=== PATIENT | female | born 1940 | race Caucasian/White ===

== ENCOUNTER 2016-06-19 22:00 | Inpatient (IN) | payer MEDICARE, MEDICAID ==
--- NOTE | 2016-06-19 22:18 | ED Physician Chart ---
Chief Complaint/HPI - Patient Information Date Seen:: 06/19/16 Time Seen:: 22:10 Chief Complaint:: possible UTI History of Present Illness:: sent here for possible UTI/urosepsis. Started on Cipro 250 mg BID 06/13/16. No apparent documented fever. Patient states she feels normal now. Historian:: Patient, EMS Review:: Transfer documents Reviewed Review of Systems - Review of Systems General/Constitutional: No fever, No chills Skin: No skin lesions Head: No headache Eyes: No loss of vision ENT: No earache Neck: No neck pain Cardio Vascular: No chest pain Pulmonary: No SOB GI: No nausea, No vomiting G/U: No dysuria Musculoskeletal: No bone or joint pain, No back pain Endocrine: No polyuria Psychiatric: Prior psych history Hematopoietic: No bruising Allergic/Immuno: No urticaria Neurological: No syncope Past Medical History - Past Medical History Past Medical History: HTN, DM, CHF, Dyslipidemia, PUD/GERD, Dementia, Other ( aplastic anemia; hyperlipidemia; insomnia; dialysis M-W-F) Family History: Other (unavailable) Social History: Care Facility Surgical History: other (dialysis shunt) Psychiatricy History: Dementia Medication: Reviewed Family Medical History - Family Member Mother History Unknown: Yes Labs/Radiology/EKG Results - Lab Results Results: Laboratory Results - last 24 hr 06/19/16 06/19/16 06/19/16 22:24 22:24 22:24 WBC 9.4 RBC 3.09 L Hgb 10.5 L Hct 31.0 L MCV 100.0 MCH 33.8 H MCHC Differential 33.8 RDW 13.2 Plt Count 287 MPV 8.3 Neutrophils % 68.9 Lymphocytes % 22.9 Monocytes % 4.5 Eosinophils % 3.0 Basophils % 0.7 Sodium 140 Potassium 3.4 L Chloride 102 Carbon Dioxide 31.1 H Anion Gap 10.3 BUN 43 H Creatinine 3.9 H Est GFR ( Amer) TNP Est GFR (Non-Af Amer) TNP BUN/Creatinine Ratio 11.0 Glucose 233 H Hemoglobin A1c % 5.7 Calcium 9.0 Urine Source Urine Color Urine Clarity Urine pH Ur Specific [place] Urine Protein Urine Glucose (UA) Urine Ketones Urine Blood Urine Nitrate Urine Bilirubin Urine Urobilinogen Ur Leukocyte Esterase Urine RBC Urine WBC Ur Epithelial Cells Urine Bacteria 06/19/16 23:59 WBC RBC Hgb Hct MCV MCH MCHC Differential RDW Plt Count MPV Neutrophils % Lymphocytes % Monocytes % Eosinophils % Basophils % Sodium Potassium Chloride Carbon Dioxide Anion Gap BUN Creatinine Est GFR ( Amer) Est GFR (Non-Af Amer) BUN/Creatinine Ratio Glucose Hemoglobin A1c % Calcium Urine Source [address] [place] Urine Color YELLOW Urine Clarity CLEAR Urine pH 7.5 Ur Specific [place] 1.015 Urine Protein 30 H Urine Glucose (UA) NEGATIVE Urine Ketones TRACE Urine Blood MODERATE H Urine Nitrate NEGATIVE Urine Bilirubin SMALL H Urine Urobilinogen 1.0 Ur Leukocyte Esterase TRACE H Urine RBC 10-25 H Urine WBC 0-2 Ur Epithelial Cells FEW Urine Bacteria NONE SEEN Assessment - Assessment General Assessment: no evidence of a UTI ED Septic Shock - . Is Septic Shock (SBP<90, OR Lactate>4 mmol\L) present?: No Reassessment (Disposition) - Reassessment Reassessment Condition:: Unchanged - Diagnosis Diagnosis:: altered mental status; renal failure on dialysis - Patient Disposition Admitted to:: Med/Surg Spoke to:: Sam Logan Admitting Medical Physician:: Sam Logan Condition at Disposition:: Stable, Unchanged
[2016-06-19 22:33] LABS: % BASOPHILS 0.7 % (0.0-2.0); % LYMPHOCYTES 22.9 % (20.0-50.0); % MONOCYTES 4.5 % (2.0-10.0); % NEUTROPHILS 68.9 % (40.0-80.0); HEMOGLOBIN 10.5 gm/dL (11.7-16.1); MEAN CORPUSCULAR HEMOGLOBIN 33.8 pg (27.0-31.0); MEAN CORPUSCULAR HGB CONC 33.8 pg (28.0-36.0); MEAN PLATELET VOLUME 8.3 fl; NEUTROPHILE ABSOLUTE 6.4 Th/cmm (1.8-8.0); PLATELET COUNT 287 Th/cmm (150-400); RED BLOOD COUNT 3.09 Mil/cmm (3.80-5.20); RED CELL DISTRIBUTION WIDTH 13.2 % (11.5-20.0); WHITE BLOOD COUNT 9.4 Th/cmm (4.8-10.8)
[2016-06-19 22:45] LABS: ANION GAP 10.3 (7.0-16.0); BUN - UREA NITROGEN 43 mg/dL (7-25); CARBON DIOXIDE 31.1 mEq/L (21.0-31.0); CHLORIDE 102 mEq/L (98-107); GLUCOSE 233 mg/dL (70-105); POTASSIUM SERUM 3.4 mEq/L (3.5-5.1); SODIUM SERUM 140 mEq/L (136-145)
[2016-06-19 22:50] LABS: CREATININE - SERUM 3.9 mg/dL (0.6-1.2)
[2016-06-20 00:53] LABS: URINE BILIRUBIN SMALL (NEGATIVE); URINE COLOR YELLOW; URINE GLUCOSE (UA) NEGATIVE (NEGATIVE); URINE KETONE TRACE mg/dL (NEGATIVE)
[2016-06-20 00:54] LABS: URINE BLOOD MODERATE (NEGATIVE); URINE PH 7.5; URINE PROTEIN 30 mg/dL (NEGATIVE)
[2016-06-20 00:55] LABS: URINE BACTERIA NONE SEEN /hpf (NONE SEEN); URINE EPITHELIAL CELLS FEW /lpf (FEW); URINE WBC 0-2 /hpf (0-5)
[2016-06-20] MEDS ORDERED: cefTRIAXone 1 GM in Sodium Chloride 0.9% 50 ML IV ONE (01:14)
[2016-06-20] MEDS ORDERED: D5-0.45NS 1,000 ML IV SCH (05:00)
[2016-06-20] MEDS ORDERED: Fleet Enema 135 mL RC PRN (05:31)
[2016-06-20] MEDS ORDERED: Magnesium Hydroxide (MOM) 30 mL UDC PO PRN (05:31)
[2016-06-20 06:51] LABS: % BASOPHILS 0.8 % (0.0-2.0); % MONOCYTES 7.2 % (2.0-10.0); HEMATOCRIT 30.9 % (35.0-45.0); HEMOGLOBIN 10.5 gm/dL (11.7-16.1); MEAN CELL VOLUME 98.3 fl (81-100); MEAN CORPUSCULAR HEMOGLOBIN 33.5 pg (27.0-31.0); MEAN CORPUSCULAR HGB CONC 34.1 pg (28.0-36.0); MEAN PLATELET VOLUME 9.1 fl; PLATELET COUNT 269 Th/cmm (150-400); RED BLOOD COUNT 3.14 Mil/cmm (3.80-5.20); RED CELL DISTRIBUTION WIDTH 13.2 % (11.5-20.0); WHITE BLOOD COUNT 9.9 Th/cmm (4.8-10.8)
[2016-06-20 07:23] LABS: ALB/GLOB RATIO 0.9 (1.0-1.8); ALKALINE PHOSPHATASE 145 U/L (34-104); ANION GAP 9.5 (7.0-16.0); BILIRUBIN,TOTAL 0.5 mg/dL (0.3-1.0); BUN - UREA NITROGEN 43 mg/dL (7-25); BUN/CREATININE RATIO 11.3; CALCIUM SERUM 9.1 mg/dL (8.6-10.3); CARBON DIOXIDE 31.8 mEq/L (21.0-31.0); CHLORIDE 104 mEq/L (98-107); CREATININE - SERUM 3.8 mg/dL (0.6-1.2); GLUCOSE 110 mg/dL (70-105); POTASSIUM SERUM 3.3 mEq/L (3.5-5.1); SGOT 30 U/L (13-39); SGPT/ALT 27 U/L (7-52); SODIUM SERUM 142 mEq/L (136-145)
--- NOTE | 2016-06-20 08:55 | History & Physical ---
CHIEF COMPLAINT: Change in mental status, possible UTI. HISTORY OF PRESENT ILLNESS: This is a 75-year-old female transferred to [facility] ER for a change in mental status, possible urosepsis versus UTI, dehydration was noted to have change in her behavior at the shelter facility and was thus transferred to the hospital for further evaluation and treatment. PAST MEDICAL HISTORY: Includes CVA with left hemiparesis, CHF, diabetes mellitus type 2, muscle weakness, anemia, hypertension, dementia, hyperlipidemia, gastroesophageal reflux disease, end-stage renal disease, on hemodialysis. LABORATORY DATA: Her initial labs reveal white count of 9.4, hemoglobin 10.5, hematocrit 31.0, platelets 287. Chem-7: Sodium was 140, potassium 3.4, chloride 102, bicarbonate 31, BUN 43, creatinine 3.9, glucose 233. REVIEW OF SYSTEMS: Essentially normal except the above listed complaints in HPI. PHYSICAL EXAMINATION: VITAL SIGNS: Temperature 98.1, pulse 75, respirations 18, blood pressure 142/71. GENERAL: This is a well-developed, well-nourished 75-year-old female in no acute distress. HEENT: Normocephalic, atraumatic. Pupils equal, round, reactive to light and accommodation. Extraocular muscles intact. Ears: TMs intact. NECK: Supple, good range of motion, no thyromegaly, no lymphadenopathy. HEART: Regular rate and rhythm. No murmurs, rubs or clicks. LUNGS: Clear to auscultation. No rales, rhonchi or wheezing. ABDOMEN: ____, soft. Bowel sounds are active in all 4 quadrants. No rebound tenderness, rigidity or guarding. EXTREMITIES: No clubbing, cyanosis or edema. Pedal pulses intact. ASSESSMENT: 1. Generalized weakness. 2. Possible urinary tract infection versus urosepsis. 3. Hypokalemia. 4. End-stage renal disease, on hemodialysis. 5. Cerebrovascular accident with left hemiparesis. 6. Congestive heart failure. 7. Diabetes mellitus, type 2. 8. Anemia. 9. Hypertension. 10. Dementia. 11. Hyperlipidemia 12. Gastroesophageal reflux disease. PLAN: We will order blood cultures, urine cultures. The patient was started on Rocephin 1 gram IV every day. We will order a Nephrology consult with Dr. Sandoval. We will continue current home medications. [facility]# [id number]
--- NOTE | 2016-06-20 09:05 | Diagnostic Imaging Report ---
CHEST X-RAY: AP view INDICATION: Pneumonia COMPARISON: None FINDINGS: Chronic changes are seen with no focal consolidation or effusions. Heart size is normal. Atherosclerosis is noted. Degenerative changes of the spine are noted. Postsurgical changes of the left axillary region are noted. IMPRESSION: Chronic lung changes with no focal consolidation identified. Atherosclerotic vascular disease.
[2016-06-20 09:43] LABS: CHOLESTEROL 172 mg/dL (<200); TRIGLYCERIDES 103 mg/dL (<150)
[2016-06-20] MEDS ORDERED: VTE Chemical Prophylaxis Screen/Admission MC PRN (13:25)
--- NOTE | 2016-06-20 14:00 | Admit Criteria Form ---
Admit Criteria Forms - Admit Criteria Diagnosis: MENTAL STATUS CHANGE Clinical Indications for Inpatient Care (Place 'X' for any and all applicable criteria): Ongoing inpatient care may be needed for ANY ONE of the following(1)(2)(3)(5)(6) : [X]I. Suspected serious etiology (eg, medical disorder, POST ACUTE CARE REGISTERED NURSE event) of mental status change [ ]II. Danger to self or others not manageable at lower level of care [ ]III. Grave disability (eg, inability to perform self care necessary at lower level of care) [ ]IV. Agitation or inappropriate behavior interfering with care for primary condition (eg, attempting to discontinue lines or drains prematurely, unable to cooperate with respiratory care) [ ]V. Delirium [A] [D][E] as described by ANY ONE of the following(26): [ ]a) Delirium due to alcohol or sedative [F] withdrawal [ ]b) Delirium of uncertain etiology that has not responded to appropriate empiric treatment [ ]c) Delirium that prevents performance of a life-sustaining function (eg, feeding or hydrating oneself) [ ]. General contraindications and/or Inappropriate clinical situations for Observational Care in patients with Mental Status Change, when ANY ONE of the following is required: [ ]a) Prediction of prolongation of LOS based on ANY ONE of the following may be considered as a contraindication for observational care 2, 3, 4, 5, 6, 7, 8, 9, 10, 11 [ ]i) Age > 65 yrs. [ ]ii) Patient arriving by ambulance [ ]iii) Patient with high acuity [ ]iv) Patient requiring vital sign monitoring [ ]v) Patient on IV medication [ ]b) Systolic blood pressures 180mmHg 3,12 [ ]c) Patient with altered mental status including delirium and other alteration of consciousness, (3) [ ]d) Patient whose discharge disposition will be to a [facility] home or rehabilitation home should not be managed in Emergency Department Observation Unit. CMS rule requires 3 days hospital stay before such placement.3,13 [ ]e) Patient with failure to thrive due to broad array of etiologies 3,16,17 [ ]f) Inability to ambulate 3,14 Extended stay beyond goal length of stay for the primary condition may be needed until ALL of the following are present(3)(5): [ ]a) Underlying medical etiology of mental status change is absent, or has been established and adequately treated [ ]b) Danger to self or others is absent or manageable at lower level of care. [ ]c) Behavior crisis management, including physical or chemical restraints, is not required or available at lower level of car [ ]d) Substance or alcohol withdrawal is absent or manageable at lower level of care. [ ]e) Behavioral symptoms (eg, agitation, somnolence, inappropriate behavior) are absent, or are manageable at lower level of care. The original [facility] content created by [facility] has been revised. The portions of the content which have been revised are identified through the use of italic text or in bold, and [facility] has neither reviewed nor approved the modified material. All other unmodified content is copyright [facility]. Please see references footnoted in the original [facility] edition 2016 Admit Criteria Met?: Yes
[2016-06-20] MEDS ORDERED: Potassium Chloride 20 mEq ER Tab PO ONE (14:13)
--- NOTE | 2016-06-20 16:16 | Consultation ---
ATTENDING PHYSICIAN: Sam Logan M.D. WHITE SOURER: James Sandoval M.D. REASON FOR CONSULTATION: Electrolyte imbalance and fluid management. HISTORY OF PRESENT ILLNESS: This is a 75-year-old female with past medical history of end-stage renal disease on hemodialysis, who was brought in because of altered level of consciousness. Seven days prior to admission, the patient was diagnosed to have urinary tract infection. She was initiated on Cipro. A few hours prior to admission, she was noted by staff to have altered level of consciousness. She was being treated for ongoing urinary tract infection. She was then brought to the Emergency Room. She was afebrile with a white count of 9. Urinalysis revealed microhematuria. The patient still urinates with no dysuria nor gross hematuria. Denied any nausea and vomiting, abdominal pain, headaches, dizziness, fever nor chills. The patient currently on hemodialysis on Thursday, Thursday and Thursday. She does not recall her place of dialysis as well as her director pharmacology. PAST MEDICAL HISTORY: 1. End-stage renal disease, on hemodialysis. 2. Cerebrovascular accident with left hemiparesis. 3. Type 2 diabetes mellitus. 4. Gastroesophageal reflux disease. 5. Vascular dementia. 6. History of congestive heart failure. 7. Essential hypertension with chronic kidney disease. PAST SURGICAL HISTORY: Status post left AV fistula. CURRENT MEDICATIONS: She is currently on acetaminophen, bisacodyl, ferrous sulfate, magnesium hydroxide, Namenda, Protonix, vitamin B complex with vitamin C, alprazolam, ceftriaxone. ALLERGIES: No known drug allergies. SOCIAL AND FAMILY HISTORY: I was not able to obtain directly from the patient. However, she is able to answer my other enquires. REVIEW OF SYSTEMS: CONSTITUTIONAL: The patient's appetite had been fair. She had no fever, no chills. HEENT: No mention of headaches, no dizziness. CARDIORESPIRATORY: She does have history of hypertension, but no chest pain, palpitations, diaphoresis, cough, no shortness of breath. GASTROINTESTINAL: No nausea and vomiting, abdominal pain or cramping, hematemesis, melena, hematochezia, no diarrhea. ENDOCRINE: History of diabetes. No thyroid abnormalities. Also, no dyslipidemia. MUSCULOSKELETAL: Multiple joint arthralgias. GENITOURINARY: History of kidney failure, now on hemodialysis. HEMATOLOGIC: She has moderate anemia of chronic disease. NEUROPSYCHIATRIC: She has no syncopal episode nor seizure activity. She has some form of neuropathy. She also came in for possible ALOC with vascular dementia and some behavior disturbance. ENDOCRINE: As mentioned, she has a history of diabetes, no thyroid abnormalities nor dyslipidemia. PHYSICAL EXAMINATION: GENERAL: The patient is now awake, verbal, more coherent, able to respond to my enquires, not in any form of distress. VITAL SIGNS: Blood pressure 177/76, pulse 76, temperature 97 degrees. SKIN: Good turgor, warm, no rash, no jaundice appreciated. HEENT: Head normocephalic, atraumatic. Eyes: Extraocular muscles intact. Pupils equal, round, reactive to light and accommodates. Anicteric sclerae. Pale conjunctivae. Nose midline nasal septum. Mouth, moist mucosa with poor dentition. NECK: Supple, no adenopathy, no thyromegaly, no bruits. Trachea palpated in the midline. CHEST AND CARDIOVASCULAR: S1, S2. No rub, murmur, no gallop appreciated. Point of maximal impulse in fifth intercostal space, left midclavicular line. No abdominal or femoral bruits appreciated. LUNGS: Equal expansion. No use of accessory muscles. No supraclavicular retractions. Decreased breath sounds, but clear to auscultation without any wheeze. BREASTS: Symmetrical, without any discharge. ABDOMEN: Flat, soft. Positive for bowel sounds. No bruits either diastolic or systolic. RECTAL: Lax sphincter tone. GENITOURINARY: Normal appearing female genitalia. MUSCULOSKELETAL: No effusions present in her joints with limited range of motion. EXTREMITIES: No evidence of edema, cyanosis, no clubbing with palpable femoral, popliteal and dorsalis pedis pulses. NEUROLOGIC: The patient is awake, verbal; however, still has some difficult time, following my neuro commands, so I was not able to pursue further my neuro exam. LABORATORY DATA: Reveal a sodium of 142, potassium 3.3, chloride 104, bicarbonate 21, BUN 43, creatinine 3.8, glucose 110, calcium 9.1, hemoglobin A1c of 5.7%. White count 9.9, hemoglobin 10.5, hematocrit 30.9, polys 61%, platelets ____. Hemoglobin A1c of 5.7% albumin is 3.3. TSH 4.49, calcium 9.1. Chest x-ray, chronic changes of the lung with no focal consolidation. IMPRESSION: 1. End-stage renal disease, on hemodialysis. 2. Altered level of consciousness, possibly metabolic encephalopathy due to sepsis from her ongoing urinary tract infection versus transient ischemic attack. 3. Vascular dementia with some behavior disturbance. 4. Microscopic hematuria with possible urinary tract infection. 5. Cerebrovascular accident with left hemiparesis. 6. Type 2 diabetes mellitus with chronic kidney disease. 7. Gastroesophageal reflux disease. 8. History of congestive heart failure. 9. Partially blind. 10. Hypokalemia 11. Anemia of chronic disease. 12. Essential hypertension with chronic kidney disease. PLAN: 1. Hemodialysis today. 2. Replace potassium. 3. The patient more incoherent today, consider CT scan if mental status deteriorates. 4. Follow up cultures and continue antibiotics. Thank you, Dr. Logan, for this consult and we will follow the patient closely with you. JOB# [id number]
[2016-06-20] MEDS: D5-0.45NS w/10 mEq KCL 1,000 ML IV SCH (21:45)
[2016-06-20] MEDS: cefTRIAXone 1 GM in Sodium Chloride 0.9% 50 ML IV SCH (23:36)
[2016-06-21] MEDS ORDERED: Albumin 25% 25gm/100mL 25 GM/100 ML BTL IV PRN
[2016-06-21 06:29] LABS: % BASOPHILS 0.5 % (0.0-2.0); % EOSINOPHILS 1.9 % (0.0-5.0); % MONOCYTES 6.5 % (2.0-10.0); % NEUTROPHILS 73.1 % (40.0-80.0); HEMATOCRIT 31.6 % (35.0-45.0); HEMOGLOBIN 10.8 gm/dL (11.7-16.1); MEAN CELL VOLUME 98.7 fl (81-100); MEAN CORPUSCULAR HEMOGLOBIN 33.7 pg (27.0-31.0); MEAN CORPUSCULAR HGB CONC 34.2 pg (28.0-36.0); MEAN PLATELET VOLUME 8.9 fl; NEUTROPHILE ABSOLUTE 7.3 Th/cmm (1.8-8.0); PLATELET COUNT 269 Th/cmm (150-400); RED CELL DISTRIBUTION WIDTH 12.9 % (11.5-20.0); WHITE BLOOD COUNT 9.9 Th/cmm (4.8-10.8)
[2016-06-21 06:53] LABS: ALB/GLOB RATIO 0.9 (1.0-1.8); ALKALINE PHOSPHATASE 138 U/L (34-104); ANION GAP 9.1 (7.0-16.0); BILIRUBIN,TOTAL 0.5 mg/dL (0.3-1.0); BUN - UREA NITROGEN 13 mg/dL (7-25); BUN/CREATININE RATIO 6.8; CALCIUM SERUM 9.1 mg/dL (8.6-10.3); CARBON DIOXIDE 33.1 mEq/L (21.0-31.0); CHLORIDE 100 mEq/L (98-107); CREATININE - SERUM 1.9 mg/dL (0.6-1.2); GLUCOSE 136 mg/dL (70-105); POTASSIUM SERUM 3.2 mEq/L (3.5-5.1); SGOT 29 U/L (13-39); SGPT/ALT 23 U/L (7-52); SODIUM SERUM 139 mEq/L (136-145)
[2016-06-21] MEDS: Pantoprazole 40 mg EC Tab PO SCH (08:24)
[2016-06-21] MEDS: Ferrous Sulfate 325 MG TAB PO SCH (08:25)
[2016-06-21] MEDS: Vitamin B Complex w/Vitamin C Tab PO SCH (08:25)
[2016-06-21 12:13] LABS: HEP B CORE IGM Negative (Negative); HEP C ANTIBODY 0.1 s/co ratio (0.0-0.9)
[2016-06-21] MEDS: D5-0.45NS w/10 mEq KCL 1,000 ML IV SCH (19:44)
[2016-06-21] MEDS: cefTRIAXone 1 GM in Sodium Chloride 0.9% 50 ML IV SCH (21:33)
[2016-06-22 06:17] LABS: ANION GAP 6.8 (7.0-16.0); BUN - UREA NITROGEN 18 mg/dL (7-25); BUN/CREATININE RATIO 6.9; CALCIUM SERUM 9.2 mg/dL (8.6-10.3); CARBON DIOXIDE 30.7 mEq/L (21.0-31.0); CHLORIDE 104 mEq/L (98-107); CREATININE - SERUM 2.6 mg/dL (0.6-1.2); GLUCOSE 107 mg/dL (70-105); MAGNESIUM 1.9 mg/dL (1.9-2.7); POTASSIUM SERUM 3.5 mEq/L (3.5-5.1); SODIUM SERUM 138 mEq/L (136-145)
[2016-06-22] MEDS: Ferrous Sulfate 325 MG TAB PO SCH (08:18)
[2016-06-22] MEDS: Vitamin B Complex w/Vitamin C Tab PO SCH (08:18)
[2016-06-22] MEDS: Pantoprazole 40 mg EC Tab PO SCH (08:18)
[2016-06-22] MEDS: D5-0.45NS w/10 mEq KCL 1,000 ML IV SCH (08:24)
[2016-06-22] MEDS: cefTRIAXone 1 GM in Sodium Chloride 0.9% 50 ML IV SCH (21:03)
[2016-06-23] MEDS: Ferrous Sulfate 325 MG TAB PO SCH (08:16)
[2016-06-23] MEDS: Vitamin B Complex w/Vitamin C Tab PO SCH (08:16)
[2016-06-23] MEDS: Pantoprazole 40 mg EC Tab PO SCH (08:16)
--- NOTE | 2016-06-27 13:42 | Discharge Summary ---
PRELIMINARY DIAGNOSES: 1. Generalized weakness. 2, Possible urinary tract infection versus urosepsis. 3. Hypokalemia. 4. End-stage renal disease. 5. Cerebrovascular accident with left hemiparesis. 6. Congestive heart failure. 7. Diabetes mellitus, type 2. 8. Anemia. 9. Hypertension. 10. Dementia. 11. Hyperlipidemia. 12. Gastroesophageal reflux disease. BRIEF HISTORY OF PRESENT ILLNESS: This is a 75-year-old female, transferred to [facility] The patient was noted by the nursing staff to have had a change in mental status with possible urosepsis versus UTI and dehydration, was noted to have a change in her behavior at the [facility] facility, and was transferred to [facility] ER for further evaluation and treatment. PAST MEDICAL HISTORY: Include CVA with left hemiparesis, CHF, diabetes mellitus type 2, muscle weakness, anemia, hypertension, dementia, hyperlipidemia, gastroesophageal reflux disease, end-stage renal disease, on hemodialysis. INITIAL LABORATORY DATA: White count was 9.4, hemoglobin 10.5, hematocrit 31.0, platelets 287. Sodium 140, potassium 3.4, chloride 102, bicarbonate 31, BUN 43, creatinine 3.9, glucose 233. HOSPITAL COURSE: The patient improved during her hospital stay, was found to have had a UTI, was started on IV antibiotics during her hospital stay. Her mental status did improve. She was seen and evaluated by Dr. Sandoval who managed her kidney dialysis. On repeat lab work, her initial creatinine was 3.8, the following day was 1.9, and on June 22, it was 2.6. Her potassium was noted to be low at 3.3, which was corrected. On June 22, it was repeated, potassium was brought to 3.5. The patient was eventually discharged back to the alf in stable condition and to continue her current medications. [facility]# [id number]
== END 2016-06-23 13:45 | DRG 871 ==
LOC: ER 22:00 → MSI 06-20 02:40
PROVIDERS: ADMIT Family Medicine; ATTEND Family Medicine
PROC: 5A1D60Z (ICD-10-PCS; principal; 2016-06-20)
DX: A41.9 Sepsis, unspecified organism (principal); N18.6 End stage renal disease; G93.41 Metabolic encephalopathy; I13.2 Hypertensive heart and chronic kidney disease with heart failure and with stage 5 chronic kidney disease, or end stage renal disease; N39.0 Urinary tract infection, site not specified; I69.354 Hemiplegia and hemiparesis following cerebral infarction affecting left non-dominant side; F01.51 Vascular dementia, unspecified severity, with behavioral disturbance; I50.9 Heart failure, unspecified; E87.6 Hypokalemia; E78.5 Hyperlipidemia, unspecified; K21.9 Gastro-esophageal reflux disease without esophagitis; E86.0 Dehydration; E11.22 Type 2 diabetes mellitus with diabetic chronic kidney disease; R31.29 Other microscopic hematuria; D63.8 Anemia in other chronic diseases classified elsewhere; H54.0 Blindness, both eyes; G30.9 Alzheimer's disease, unspecified; Z99.2 Dependence on renal dialysis
CPT/HCPCS: 36415-UA; 71010-TC; 80048-TC; 80053-TC; 80061-TC; 80074-90; 81001-TC; 83036-90; 83735-TC; 84443-TC; 85025-TC; 87086-90; 90937; J0696; J1644; J7030; Z7610

== ENCOUNTER 2017-05-09 19:43 | Emergency (ER) | payer MEDICARE, MEDICAID ==
[2017-05-09 20:35] LABS: % BASOPHILS 0.7 % (0.0-2.0); % EOSINOPHILS 6.4 % (0.0-5.0); % LYMPHOCYTES 19.1 % (20.0-50.0); % MONOCYTES 8.1 % (2.0-10.0); % NEUTROPHILS 65.7 % (40.0-80.0); BASOPHILE ABSOLUTE 0.1 Th/cumm (0-0.2); EOSINOPHILE ABSOLUTE 0.6 Th/cmm (0.1-0.4); HEMOGLOBIN 8.5 gm/dL (12-16); LYMPHOCYTE ABSOLUTE 1.9 Th/cmm (1.5-3.0); MEAN CORPUSCULAR HEMOGLOBIN 34.3 pg (27.0-31.0); MEAN PLATELET VOLUME 8.5 fl; MONOCYTE ABSOLUTE 0.8 Th/cmm (0.3-1.0); NEUTROPHILE ABSOLUTE 6.6 Th/cmm (1.8-8.0); PLATELET COUNT 273 Th/cmm (150-400); RED BLOOD COUNT 2.46 Mil/cmm (3.80-5.20); RED CELL DISTRIBUTION WIDTH 19.6 % (11.5-20.0)
[2017-05-09 20:36] LABS: HEMATOCRIT 25.6 % (41.0-60)
--- NOTE | 2017-05-09 20:36 | ED Physician Chart ---
ED Chief Complaint/HPI - Patient Information Date Seen:: 05/09/17 Time Seen:: 19:45 Chief Complaint:: LEFT HAND FRACTURE History of Present Illness:: THIS IS A 76 YO FEMALE SENT FROM THE [facility] FOR EVALUATION OF THE INJURED LEFT HAND, SHE IS CHRONICALLY ILL FROM DIABETES AND IS A DIALYSIS PATIENT. THE LEFT 4TH FINGER WAS INJURED WITH NO ONE KNOWING HOW. Allergies:: Allergies Allergy/AdvReac Type Severity Reaction Status Date / Time No Known Allergies Allergy Verified 06/19/16 22:29 Vitals:: Vital Signs - 8 hr 05/09/17 19:50 Temp 98.1 F HR 92 RR 16 BP 125/61 O2 Sat % 99 Historian:: EMS, Medical Records Review:: Nurse's Note Reviewed, Transfer documents Reviewed ED Review of Systems - Review of Systems General/Constitutional: No fever, No chills, No weight loss, No weakness, No diaphoresis, No edema, No loss of appetite, Other (THIS PATIENT IS UNABLE TO GIVE A REVIEW OF SYSTEMS) Skin: No skin lesions, No rash, No bruising Head: No headache, No light-headedness Eyes: No loss of vision, No pain, No diplopia ENT: No earache, No nasal drainage, No sore throat, No tinnitus Neck: No neck pain, No swelling, No thyromegaly, No stiffness, No mass noted Cardio Vascular: No chest pain, No palpitations, No PND, No orthopnea, No edema Pulmonary: No SOB, Cough, No sputum, No wheezing GI: No nausea, No vomiting, No diarrhea, No pain, No melena, No hematochezia, No constipation, No hematemesis G/U: No dysuria, No frequency, No hematuria Musculoskeletal: No bone or joint pain, No back pain, No muscle pain Endocrine: No polyuria, No polydipsia Psychiatric: Prior psych history, No depression, No anxiety, No suicidal ideation Hematopoietic: No bruising, No lymphadenopathy Allergic/Immuno: No urticaria, No angioedema Neurological: No syncope, No focal symptoms, No weakness, No paresthesia, No headache, No seizure, No dizziness, Confusion, No vertigo ED Past Medical History - Past Medical History Obtainable: Yes Past Medical History: HTN, DM, CAD, Dyslipidemia, Dementia Family History: None Social History: Non Smoker, No Alcohol, No Drug Use, Care Facility Surgical History: None Psychiatricy History: Dementia Medication: Reviewed Family Medical History - Family Member Mother History Unknown: Yes ED Physical Exam - Physical Examination General/Constitutional: Awake, Well-developed, well-nourished, Alert, No distress, GCS 15, Non-toxic appearing, Ambulatory Other Gen/Cons comments:: THE PATIENT IS NON-VERBAL AND CONFUSED Head: Atraumatic Eyes: Lids, conjuctiva normal, PERRL, EOMI Skin: Nl inspection, No rash, No skin lesions, No ecchymosis, Well hydrated, No lymphadenopathy ENMT: External ears, nose nl, Nasal exam nl, Lips, teeth, gums nl Neck: Nontender, Full ROM w/o pain, No JVD, No nuchal rigidity, No bruit, No mass, No stridor Respiratory: Nl effort/Exclusion, Clear to Auscultation, No Wheeze/Rhonchi/Rales Cardio Vascular: RRR, No murmur, gallop, rubs, NL S1 S2 GI: No tenderness/rebounding/guarding, No organomegaly, No hernia, Normal BS's, Nondistended, No mass/bruits, No McBurney tenderness : No CVA tenderness Extremities: No tenderness or effusion, Full ROM, normal strength in all extremities, No edema, Normal digits & nails (LEFT 4TH FINGER IS SWOLLEN AND TENDER WITH MILD DEFORMITY.) Neuro/Psych: Alert/oriented (ALERT BUT DISORIENTED ), DTR's symmetric, Normal sensory exam, Normal motor strength, Judgement/insight normal, Mood normal, Normal gait, No focal deficits Misc: Normal back, No paraspinal tenderness ED Labs/Radiology/EKG Results - Radiology Results Results: CHEST X=RAY = NAD LEFT HAND X-RAY = FRACTURE OF THE LEFT 4TH PROXIMAL PHALANX. - EKG Interpretations EKG Time:: 20:11 Rate & Rhythm: RATE=73 [place]: RIGHT Comments:: NO ECTOPY SEEN ED Assessment - Assessment General Assessment: SPIRAL FRACTURE OF THE LEFT FORTH FINGER Splint Care: Splint applied (TO THE LEFT 4TH FINGER) ED Septic Shock - . Is Septic Shock (SBP<90, OR Lactate>4 mmol\L) present?: No - <6hrs of presentation: Vital Signs: Vital Signs - 8 hr 05/09/17 19:50 Temp 98.1 F HR 92 RR 16 BP 125/61 O2 Sat % 99 ED Reassessment (Disposition) - Reassessment Reassessment Condition:: Improved - Diagnosis Diagnosis:: FRACTURE LEFT 4TH FINGER - Aftercare/Follow up Instructions Aftercare/Follow-Up Instructions:: Counseled pt regarding lab results/diagnosis & need follow up, Refer to Discharge Instructions, Counseled pt & family regarding lab results/diagnosis & need follow up - Patient Disposition Discharge/Transfer:: Assisted Care - SNF Condition at Disposition:: Improved ED Discharge Plan - Patient Disposition Admit/Discharge/Transfer: Discharge/Transfered to SNF
[2017-05-09 20:49] LABS: INR 0.95 (0.5-1.4); PROTHROMBIN TIME (TEST) 9.9 SECONDS (9.5-11.5)
[2017-05-09 20:51] LABS: ALBUMIN 3.3 gm/dL (3.7-5.3); ALKALINE PHOSPHATASE 64 U/L (34-104); ANION GAP 12.2 (7.0-16.0); BILIRUBIN,TOTAL 0.2 mg/dL (0.3-1.0); BUN - UREA NITROGEN 50 mg/dL (7-25); CALCIUM SERUM 8.6 mg/dL (8.6-10.3); CARBON DIOXIDE 25.7 mEq/L (21.0-31.0); CHLORIDE 104 mEq/L (98-107); CREATININE - SERUM 3.2 mg/dL (0.6-1.2); GLUCOSE 193 mg/dL (70-105); POTASSIUM SERUM 3.9 mEq/L (3.5-5.1); SGOT 17 U/L (13-39); SGPT/ALT 10 U/L (7-52); SODIUM SERUM 138 mEq/L (136-145); TOTAL PROTEIN,SERUM 6.5 gm/dL (6.0-8.3)
--- NOTE | 2017-05-10 08:27 | Diagnostic Imaging Report ---
Exam: Chest x-ray HISTORY: Cough. Findings: Frontal examination of chest was reviewed compared to prior study 06/19/2016 demonstrates COPD changes. Mild peribronchial infiltrate is noted in left base with pleural thickening and the atelectasis. The right lung parenchyma is well aerated. The stomach structures midline the aortic arch calcified. Bony thorax remarkable for degenerative osteopenia. IMPRESSION: Left basilar infiltrate superimposed atelectasis pleural thickening. Follow-up examination recommended. COPD changes.
--- NOTE | 2017-05-10 10:42 | Diagnostic Imaging Report ---
Exam: Left hand. HISTORY: Pain swelling. Findings: Multiple views of left hand reviewed. The study demonstrates a minimally displaced fracture of the proximal phalanx left fourth finger. The fracture doesn't extend into the joint space. Diffuse osteopenia is noted. Degenerative osteoarthritic changes are noted. IMPRESSION: Minimally displaced fracture proximal phalanx left fourth finger. \
[2017-05-10 18:16] LABS: A1C % 5.2 % (4.0-6.0)
== END 2017-05-09 22:05 ==
LOC: ER 19:43
DX: S62.605A Fracture of unspecified phalanx of left ring finger, initial encounter for closed fracture (principal); I10 Essential (primary) hypertension; E11.9 Type 2 diabetes mellitus without complications; I25.10 Atherosclerotic heart disease of native coronary artery without angina pectoris; E78.5 Hyperlipidemia, unspecified; X58.XXXA Exposure to other specified factors, initial encounter; Y93.89 Activity, other specified; Y92.89 Other specified places as the place of occurrence of the external cause; Y99.8 Other external cause status
CPT/HCPCS: 36415-UA; 71045-TC; 73140-TC-F3; 80053-TC; 83036-90; 84443-TC; 84484-TC; 85025-TC; 85610-TC; 93005